=== PATIENT | female | born 1965 | race Caucasian/White ===

== ENCOUNTER 2017-07-22 19:22 | Emergency (ER) | payer OTHER ==
--- NOTE | 2017-07-22 19:29 | EDPHY ---
H & P Source: Patient, Police, RN/MD Exam Limitations: No limitations Time Seen by Provider: 07/22/17 19:28 HPI/ROS: HPI: This is a 51-year-old female who presents with Chief Complaint: M1 hold Location:psych Quality: M1 hold Duration: Today Signs and Symptoms: poor insight and judgment, no auditory and visual command hallucinations, no suicidal ideation with a plan, no homicidal ideation, no paranoia Timing: Acute on chronic Severity: Moderate to severe Context: Patient presents on M1 hold by [employer] police after her coworkers became concerned today due to hurt her erratic, aggressive behavior. She works at the [employer] on campus. Patient reports that her meds were recently switched yesterday but is on able to tell us what medication she is taking. She does report that the medications are to regulate her mood swings. While at work today she punched a window due to be coming extremely angry. When asked why she stated because of Amy. She also states she wants to go take a bath in the [employer]. It was felt that patient was a danger to self and others as she wanted to hurt other people, statements made and form filled out a crisis Center. Patient reports that she has been employed at the [employer] for 16-17 years. She has been on Zoloft for quite some time. She is followed outpatient by psychiatry. History of depression. Takes estrogen supplementation. Modifying Factors: None Comment: ROS: see HPI Constitutional: No fever, no chills, no weight loss Eyes: No blurred vision Respiratory: No shortness of breath, no cough Cardiovascular: No chest pain Gastrointestinal: No nausea, no vomiting, no diarrhea Genitourinary: No dysuria Extremities: No myalgias Neurologic: No weakness, no numbness Skin: No rashes Hematologic: No bruising, no bleeding MEDICAL/SURGICAL/SOCIAL HISTORY: Medical history: Depression Surgical history: Breast augmentation, bilateral eye surgery, gender reassignment surgery in [place] in 2002 Social history: Employed. CONSTITUTIONAL: Flat affect, middle aged adult female, awake and alert, no obvious distress HEENT: Atraumatic and normocephalic, PERRL, EOMI. Tympanic membranes clear. Oropharynx clear, poor dentition, no exudate and moist pink mucosa. Airway patent. No lymphadenopathy. No meningismus. Cardiovascular: Normal S1/S2, regular rate, regular rhythm, without murmur rub or gallop. PULMONARY/CHEST: Symmetrical and nontender. Clear to auscultation bilaterally. Good air movement. No accessory muscle usage. ABDOMEN: Soft, nondistended, nontender, no rebound, no guarding, no peritoneal signs, no masses or organomegaly. No CVAT. EXTREMITIES: 2/2 pulses, strength 5/5, no deformities, no clubbing, no cyanosis or edema. NEUROLOGICAL: no focal neuro deficits. GCS 15. SKIN: Warm and dry, no erythema. no rash. Good capillary refill. PSYCH: Poor eye contact, flight of ideas, tangential disorganized thought process, poor insight and judgment, no auditory and visual command hallucinations, no suicidal ideation with a plan, no homicidal ideation, not paranoid (Lexi Max) Constitutional: Initial Vital Signs Temperature (C) 36.7 C 07/22/17 19:27 Heart Rate 65 07/22/17 19:27 Respiratory Rate 18 07/22/17 19:27 Blood Pressure 137/86 H 07/22/17 19:27 O2 Sat (%) 96 07/22/17 19:27 O2 Delivery Mode Room Air Allergies/Adverse Reactions: droperidol [From Inapsine] Allergy (Verified 07/22/17 19:29) Home Medications: Medication Instructions Recorded Diphenoxylate HCl/Atrop Sulf 1 tab PO BID #10 tab 09/04/11 [Lomotil Tab (RX)] Estrogens, Conjugated [Premarin] 0 mg PO 09/04/11 Progesterone, Micronized 0 mg PO 09/04/11 [Progesterone] Medical Decision Making ED Course/Re-evaluation: 1750: Agree with being placed on M1 hold as gravely disabled and danger to self and others. Labs and UDS ordered. 2034: Labs and UDS reviewed. Medically clear for mental health evaluation. 230: Mental health at bedside for evaluation. 0010: Mental health recommends inpatient psychiatric hospitalization. Signed over to Dr. Flores pending acceptance to inpatient psych. Patient continues to remain calm and cooperative. This patient was seen under the supervision of my secondary supervising physician. I evaluated care for this patient independently. Discussed this patient with Dr. Flores who did not see the patient. (Lexi Max) 0511: Patient has been accepted at [facility] by Dr. Rosas. EMTALA filled out. Appropriate transfer will be set up. (Dontae Flores) Differential Diagnosis: Altered mental status including but not limited to hypoglycemia, infectious process, electrolyte abnormality, head injury and intoxicants. (Lexi Max) - Data Points Laboratory Results: Laboratory Results 07/22/17 20:00 07/22/17 20:00 07/22/17 07/22/17 07/22/17 20:13 20:00 20:00 WBC RBC Hgb Hct MCV MCH MCHC RDW Plt Count MPV Neut % (Auto) Lymph % (Auto) [place] % (Auto) Eos % (Auto) Baso % (Auto) Nucleat RBC Rel Count Absolute Neuts (auto) Absolute Lymphs (auto) Absolute Monos (auto) Absolute Eos (auto) Absolute Basos (auto) Absolute Nucleated RBC Immature Gran % Immature Gran # Sodium 135 mEq/L mEq/L (135-145) Potassium 3.5 mEq/L mEq/L (3.5-5.2) Chloride 101 mEq/L mEq/L (97-110) Carbon Dioxide 27 mEq/l mEq/l (22-31) Anion Gap 7 mEq/L L mEq/L (8-16) BUN 28 mg/dL H mg/dL (7-23) Creatinine 1.1 mg/dL H mg/dL (0.6-1.0) Estimated GFR 52 Glucose 85 mg/dL mg/dL (70-100) Calcium 9.1 mg/dL mg/dL (8.5-10.4) Beta HCG, Qual NEGATIVE Urine Opiates Screen NEGATIVE (NEGATIVE) Urine Barbiturates NEGATIVE (NEGATIVE) Ur Phencyclidine Scrn NEGATIVE (NEGATIVE) Ur Amphetamine Screen NEGATIVE (NEGATIVE) U Benzodiazepines Scrn NEGATIVE (NEGATIVE) Urine Cocaine Screen NEGATIVE (NEGATIVE) U Marijuana (THC) Screen NEGATIVE (NEGATIVE) Ethyl Alcohol < 10 mg/dL mg/dL (0-10) 07/22/17 20:00 WBC 5.67 10^3/uL 10^3/uL (3.80-9.50) RBC 3.87 10^6/uL L 10^6/uL (4.18-5.33) Hgb 12.2 g/dL L g/dL (12.6-16.3) Hct 35.0 % L % (38.0-47.0) MCV 90.4 fL fL (81.5-99.8) MCH 31.5 pg pg (27.9-34.1) MCHC 34.9 g/dL g/dL (32.4-36.7) RDW 12.6 % % (11.5-15.2) Plt Count 222 10^3/uL 10^3/uL (150-400) MPV 9.6 fL fL (8.7-11.7) Neut % (Auto) 73.6 % % (39.3-74.2) Lymph % (Auto) 20.5 % % (15.0-45.0) [place] % (Auto) 5.1 % % (4.5-13.0) Eos % (Auto) 0.2 % L % (0.6-7.6) Baso % (Auto) 0.2 % L % (0.3-1.7) Nucleat RBC Rel Count 0.0 % % (0.0-0.2) Absolute Neuts (auto) 4.18 10^3/uL 10^3/uL (1.70-6.50) Absolute Lymphs (auto) 1.16 10^3/uL 10^3/uL (1.00-3.00) Absolute Monos (auto) 0.29 10^3/uL L 10^3/uL (0.30-0.80) Absolute Eos (auto) 0.01 10^3/uL L 10^3/uL (0.03-0.40) Absolute Basos (auto) 0.01 10^3/uL L 10^3/uL (0.02-0.10) Absolute Nucleated RBC 0.00 10^3/uL 10^3/uL (0-0.01) Immature Gran % 0.4 % % (0.0-1.1) Immature Gran # 0.02 10^3/uL 10^3/uL (0.00-0.10) Sodium Potassium Chloride Carbon Dioxide Anion Gap BUN Creatinine Estimated GFR Glucose Calcium Beta HCG, Qual Urine Opiates Screen Urine Barbiturates Ur Phencyclidine Scrn Ur Amphetamine Screen U Benzodiazepines Scrn Urine Cocaine Screen U Marijuana (THC) Screen Ethyl Alcohol Medications Given: Discontinued Medications Ondansetron HCl (Zofran Odt) 4 mg PO EDNOW ONE Stop: 07/23/17 00:30 Last Admin: 07/23/17 00:30 Dose: 4 mg Departure - Departure Disposition: Other Psych, Not [facility] Clinical Impression: Work-related stress, Severe major depression without psychotic features Condition: Fair
[2017-07-22 20:11] LABS: PLATELET COUNT 222 10^3/uL (150-400)
[2017-07-23] MEDS ORDERED: ONDANSETRON DISINTEGRATING 4 MG TAB ONE (00:27)
[2017-07-23] MEDS ORDERED: ONDANSETRON DISINTEGRATING 4 MG TAB PO ONE (00:29)
[2017-07-23 05:54] VITALS: BP 139/76
== END 2017-07-23 05:53 ==
DX: F32.2 Major depressive disorder, single episode, severe without psychotic features (principal); Z56.6 Other physical and mental strain related to work
CPT/HCPCS: 80305; G0480